=== PATIENT | male | born 1980 | race Caucasian/White ===

== ENCOUNTER 2021-06-09 15:44 | Emergency (ER) | payer OTHER ==
[2021-06-09 17:36] LABS: BASOPHIL 0.4 % (0-2); EOSINOPHIL 0 % (0-5); HCT 42.3 % (42.0-52.0); HGB 14.3 g/dl (13.2-18.0); LYMPHOCYTE 27.5 % (15-48); MCH 31.6 pg (25.0-31.0); MCHC 33.8 g/dL (32.0-36.0); MCV 93.6 fL (78.0-100.0); MONOCYTE 4.8 % (0-12); MPV 9.1 fL (6.0-9.5); NEUTROPHIL 65.2 % (41-80); NRBC 0; PLT 254 K/uL (150-400); RBC 4.52 M/uL (4.70-6.00); RDW 12.1 % (11.5-14.0)
[2021-06-09 17:37] LABS: WBC 5.6 K/uL (4.0-10.5)
[2021-06-09 17:42] LABS: BUN/CREAT RATIO (CALC) 12.4 RATIO; CREATININE 1.37 mg/dL (0.67-1.17); POTASSIUM 4.5 mmol/L (3.5-5.1)
[2021-06-09 18:10] LABS: BILIRUBIN NEGATIVE (NEGATIVE); BLOOD NEGATIVE Ery/uL (NEGATIVE); CLARITY CLEAR (CLEAR); COLOR YELLOW (YELLOW); GLUCOSE (U) NORMAL (NORMAL); LEUKOCYTES NEGATIVE Leu/uL (NEGATIVE); NITRITE NEGATIVE (NEGATIVE); PROTEIN 2+ mg/dL (NEGATIVE); SPECIFIC GRAVITY 1.025 (1.001-1.030); UROBILINOGEN 0.2 mg/dL (0.2-1.0)
[2021-06-09 18:16] LABS: TRANSITIONAL EPITHELIAL CELLS RARE; URINARY WBC RARE
[2021-06-09 18:17] LABS: MUCOUS TRACE; RENAL EPITHELIAL CELLS RARE
[2021-06-09] MEDS ORDERED: MEDROL 4MG DOSEP4 MG PO (19:51)
[2021-06-09] MEDS ORDERED: VENTOLIN HFA IN18 GM INH (19:51)
== END 2021-06-09 20:11 | disposition home or self-care (01) ==
LOC: FER 15:44
PROVIDERS: Nurse Practitioner Family
DX: U07.1 COVID-19 (principal); J12.82 Pneumonia due to coronavirus disease 2019; I10 Essential (primary) hypertension
CPT/HCPCS: 36415; 71045; 71275; 80048; 81001; 85025; 85379; 87880; J1100; J2405; J7030; Q9967

== ENCOUNTER 2021-06-12 14:32 | Inpatient (IN) | payer OTHER ==
[~2021-06-12 14:32] MED LIST: MEDROL 4MG DOSEP4 MG PO; VENTOLIN HFA IN18 GM INH
[2021-06-12 16:22] LABS: BASOPHIL 0.4 % (0-2); EOSINOPHIL 0 % (0-5); HCT 42.3 % (42.0-52.0); HGB 14.1 g/dl (13.2-18.0); LYMPHOCYTE 10.1 % (15-48); MCH 31.5 pg (25.0-31.0); MCHC 33.3 g/dL (32.0-36.0); MCV 94.4 fL (78.0-100.0); MONOCYTE 1.7 % (0-12); MPV 9.3 fL (6.0-9.5); NEUTROPHIL 84.5 % (41-80); NRBC 0; PLT 343 K/uL (150-400); RBC 4.48 M/uL (4.70-6.00); WBC 17.1 K/uL (4.0-10.5)
[2021-06-12 16:36] LABS: INR 1.09 (0.9-1.2); PROTHROMBIN TIME 13.5 SECONDS (11.8-13.4); PTT 30.6 SECONDS (24.4-34.7)
[2021-06-12 16:46] LABS: LACTIC ACID 1.8 mmol/L (0.4-1.9)
[2021-06-12 17:12] LABS: ALBUMIN 3.6 g/dL (3.4-5.0); ALKALINE PHOSHATASE 83 U/L (46-116); ALT 74 U/L (16-63); AST 65 U/L (15-37); BILIRUBIN - TOTAL 0.9 mg/dL (0.2-1.0); BUN 20 mg/dL (7-18); BUN/CREAT RATIO (CALC) 21.3 RATIO; C-REACTIVE PROTEIN >18.00 mg/dL (<=0.90); CHLORIDE 95 mmol/L (98-107); CO2 (BICARBONATE) 27 mmol/L (21-32); CREATININE 0.94 mg/dL (0.67-1.17); GLOBULIN (CALCULATION) 4.6 g/dL; GLUCOSE 145 mg/dL (74-106); MAGNESIUM 2.8 mg/dL (1.8-2.4); TOTAL PROTEIN 8.2 g/dL (6.4-8.2)
[2021-06-12 18:48] LABS: BILIRUBIN 1+ mg/dL (NEGATIVE); BLOOD 1+ Ery/uL (NEGATIVE); CLARITY CLEAR (CLEAR); GLUCOSE (U) NORMAL (NORMAL); LEUKOCYTES NEGATIVE Leu/uL (NEGATIVE); NITRITE NEGATIVE (NEGATIVE); PROTEIN 3+ mg/dL (NEGATIVE); SPECIFIC GRAVITY >=1.030 (1.001-1.030); UROBILINOGEN 0.2 mg/dL (0.2-1.0)
[2021-06-12 18:50] LABS: COLOR AMBER (YELLOW)
[2021-06-12 18:57] LABS: AMORPHOUS URATES CRYSTALS MODERATE; BACTERIA 2+
[2021-06-12] MEDS ORDERED: ZESTRIL2.5 MG PO (21:38)
[2021-06-13 07:31] LABS: BASOPHIL 0.5 % (0-2); EOSINOPHIL 0 % (0-5); HCT 38.5 % (42.0-52.0); HGB 12.6 g/dl (13.2-18.0); LYMPHOCYTE 11.4 % (15-48); MCH 31.3 pg (25.0-31.0); MCHC 32.7 g/dL (32.0-36.0); MCV 95.5 fL (78.0-100.0); MONOCYTE 2.9 % (0-12); MPV 9.5 fL (6.0-9.5); NEUTROPHIL 80.5 % (41-80); NRBC 0; PLT 381 K/uL (150-400); RBC 4.03 M/uL (4.70-6.00); RDW 13.1 % (11.5-14.0)
[2021-06-13 07:32] LABS: WBC 14.4 K/uL (4.0-10.5)
[2021-06-13 08:25] LABS: BUN/CREAT RATIO (CALC) 25.6 RATIO; CREATININE 0.78 mg/dL (0.67-1.17); POTASSIUM 4.3 mmol/L (3.5-5.1)
[2021-06-14 06:41] LABS: BASOPHIL 0.6 % (0-2); EOSINOPHIL 0 % (0-5); HCT 33.8 % (42.0-52.0); HGB 11.2 g/dl (13.2-18.0); LYMPHOCYTE 17.3 % (15-48); MCH 31.6 pg (25.0-31.0); MCHC 33.1 g/dL (32.0-36.0); MCV 95.5 fL (78.0-100.0); MONOCYTE 2.9 % (0-12); MPV 9.5 fL (6.0-9.5); NEUTROPHIL 72.7 % (41-80); NRBC 0; PLT 426 K/uL (150-400); RBC 3.54 M/uL (4.70-6.00); RDW 13.3 % (11.5-14.0); RETICULOCYTE COUNT 0.9 % (1.0-2.0)
[2021-06-14 06:46] LABS: WBC 10.5 K/uL (4.0-10.5)
[2021-06-14 07:04] LABS: IRON % SATURATION 63.4 %SAT (20-50)
[2021-06-14 07:53] LABS: C-REACTIVE PROTEIN 6.2 mg/dL (<=0.90); CREATININE 0.6 mg/dL (0.67-1.17); PHOSPHORUS 2.2 mg/dL (2.6-4.7); POTASSIUM 3.2 mmol/L (3.5-5.1)
[2021-06-14 07:55] LABS: MAGNESIUM 2.1 mg/dL (1.8-2.4)
[2021-06-15 06:42] LABS: BASOPHIL 0.6 % (0-2); EOSINOPHIL 0 % (0-5); HCT 32.7 % (42.0-52.0); HGB 10.6 g/dl (13.2-18.0); LYMPHOCYTE 18.9 % (15-48); MCH 31.3 pg (25.0-31.0); MCHC 32.4 g/dL (32.0-36.0); MCV 96.5 fL (78.0-100.0); MONOCYTE 4.4 % (0-12); MPV 9.4 fL (6.0-9.5); NEUTROPHIL 69.7 % (41-80); NRBC 0; PLT 483 K/uL (150-400); RBC 3.39 M/uL (4.70-6.00); RDW 13.5 % (11.5-14.0); WBC 11.3 K/uL (4.0-10.5)
[2021-06-15 07:12] LABS: CREATININE 0.7 mg/dL (0.67-1.17); POTASSIUM 3.7 mmol/L (3.5-5.1)
--- NOTE | 2021-06-16 16:51 | NUR ---
06/16 [employer] has delivered 02 @ 6 L per oximizer in anticipation of dc on 06/17.
[2021-06-17 06:07] LABS: BASOPHIL 0.1 % (0-2); EOSINOPHIL 0.2 % (0-5); HCT 41.7 % (42.0-52.0); HGB 13.7 g/dl (13.2-18.0); LYMPHOCYTE 26.3 % (15-48); MCHC 32.9 g/dL (32.0-36.0); MCV 94.3 fL (78.0-100.0); MONOCYTE 6.4 % (0-12); MPV 9.3 fL (6.0-9.5); NEUTROPHIL 50.3 % (41-80); NRBC 0; PLT 657 K/uL (150-400); RBC 4.42 M/uL (4.70-6.00); RDW 12.9 % (11.5-14.0)
[2021-06-17 06:20] LABS: WBC 12.9 K/uL (4.0-10.5)
[2021-06-17 07:45] LABS: ALBUMIN 3.2 g/dL (3.4-5.0); BILIRUBIN - TOTAL 0.7 mg/dL (0.2-1.0); BUN/CREAT RATIO (CALC) 27.3 RATIO; CREATININE 0.77 mg/dL (0.67-1.17); GLOBULIN (CALCULATION) 3.9 g/dL; POTASSIUM 4.6 mmol/L (3.5-5.1); TOTAL PROTEIN 7.1 g/dL (6.4-8.2)
[2021-06-17] MEDS ORDERED: DULERA 200 MCG8.8 GM INH (11:21)
[2021-06-17] MEDS ORDERED: DEXAMETHASONE 2M2 MG PO (11:21)
[2021-06-17] MEDS ORDERED: VENTOLIN HFA IN18 GM INH (11:21)
[2021-06-17] MEDS ORDERED: VITAMIN D325 MC1 PO (11:21)
== END 2021-06-17 17:39 | disposition home or self-care (01) | DRG 871 ==
LOC: FER 14:32 → FMS 18:08 → FTCU 18:08 → FMS 18:09 → FTCU 21:07
PROVIDERS: Emergency Medicine; Internal Medicine; Nurse Practitioner Acute Care; ADMIT Internal Medicine
PROC: XW033E5 Introduction of Remdesivir Anti-infective into Peripheral Vein, Percutaneous Approach, New Technology Group 5 (ICD-10-PCS; principal; 2021-06-12)
PROC: 8E0ZXY6 Isolation (ICD-10-PCS; 2021-06-12)
PROC: 5A0945A Assistance with Respiratory Ventilation, 24-96 Consecutive Hours, High Flow/Velocity Cannula (ICD-10-PCS; 2021-06-12)
PROC: XW0DXM6 Introduction of Baricitinib into Mouth and Pharynx, External Approach, New Technology Group 6 (ICD-10-PCS; 2021-06-13)
DX: A41.89 Other specified sepsis (principal); U07.1 COVID-19; J12.82 Pneumonia due to coronavirus disease 2019; J96.01 Acute respiratory failure with hypoxia; J15.9 Unspecified bacterial pneumonia; E44.1 Mild protein-calorie malnutrition; E87.4 Mixed disorder of acid-base balance; R65.20 Severe sepsis without septic shock; I10 Essential (primary) hypertension; E87.6 Hypokalemia; E83.39 Other disorders of phosphorus metabolism; E83.51 Hypocalcemia; R73.9 Hyperglycemia, unspecified; T38.0X5A Adverse effect of glucocorticoids and synthetic analogues, initial encounter; D64.9 Anemia, unspecified; R19.7 Diarrhea, unspecified; Z99.81 Dependence on supplemental oxygen; Z87.891 Personal history of nicotine dependence
CPT/HCPCS: 36415; 36600; 71250; 80048; 80053; 81001; 82040; 82607; 82728; 82803; 82962; 83540; 83550; 83605; 83735; 83880; 84100; 84145; 84443; 84484; 85025; 85610; 85730; 86140; 87040; 87045; 87046; 87088; 87205; 93005; 94640; 94667; 94668; 94762; 97161; 97165; 97535; C9399; J0456; J0610; J0696; J1100; J1650; J2060; J3480; J7030; J7040; J7050; J8540; U0002